=== PATIENT | female | born 1975 | race Caucasian/White ===

== ENCOUNTER 2020-07-28 15:29 | Emergency (ER) | payer OTHER ==
[~2020-07-28 15:29] MED LIST: AUGMENTIN 875-1 EACH PO; FLOXIN 0.3% OTIC5 ML EARLF; IPRAT-ALBUT 0.5-3 ML INH; MEDROL4 MG PO; POLYTRIM EYE DR10 ML EYEBOTH; VENTOLIN HFA 66.7 GM INH
[2020-07-28 16:23] LABS: HEMOGLOBIN 13.7 gm/dl (12.3-15.3); RED BLOOD COUNT 5.02 M/UL (4.00-5.10); WHITE BLOOD COUNT 7.8 K/UL (4.5-11.0)
[2020-07-28 16:38] LABS: BUN/CREATININE RATIO 14 (0-10)
[2020-07-28 17:18] LABS: ADENOVIRUS F 40/41 Not Detected (Negative); ASTROVIRUS Not Detected (Negative); CAMPYLOBACTER Not Detected (Negative); CLOSTRIDIUM DIFFICILE TOX A/B Not Detected (Negative); CRYPTOSPORIDIUM Not Detected (Negative); E.COLI 0157 Not Detected (Negative); ENTAMOEBA HISTOLYTICA Not Detected (Negative); ENTEROAGGREGATIVE E.COLI (EAEC Not Detected (Negative); ENTEROPATHOGENIC E.COLI (EPEC) Not Detected (Negative); ENTEROTOXIGENIC E.COLI (ETEC) Not Detected (Negative); GIARDIA LAMBLIA Not Detected (Negative); NOROVIRUS GI/GII Not Detected (Negative); PLESIOMONAS SHIGELLOIDES Not Detected (Negative); ROTOVIRUS A Not Detected (Negative); SALMONELLA Not Detected (Negative); SAPOVIRUS Not Detected (Negative); SHIG/ENTEROINVAS.ECOLI (EIEC) Not Detected (Negative); SHIGA-LIK TOX.PRO.E.COLI (STEC Not Detected (Negative); VIBRIO Not Detected (Negative); VIBRIO CHOLERAE Not Detected (Negative); YERSINIA ENTEROCOLITICA Not Detected (Negative)
== END 2020-07-28 18:30 | disposition left against medical advice (07) ==
LOC: ER1 15:29
PROVIDERS: Family Medicine
DX: R11.2 Nausea with vomiting, unspecified (principal); R19.7 Diarrhea, unspecified; F17.200 Nicotine dependence, unspecified, uncomplicated; Z20.822 Contact with and (suspected) exposure to COVID-19
CPT/HCPCS: 0240U; 71045; 80053; 83690; 85025; 87507; 96374; 99284; J2405; J7120

== ENCOUNTER 2021-04-15 06:19 | Emergency (ER) | payer OTHER ==
[2021-04-15 07:25] LABS: RED BLOOD COUNT 3.84 M/UL (4.00-5.10); WHITE BLOOD COUNT 11.4 K/UL (4.5-11.0)
[2021-04-15 07:42] LABS: BUN/CREATININE RATIO 15 (0-10)
== END 2021-04-15 10:14 | disposition home or self-care (01) ==
LOC: ER1 06:19
PROVIDERS: Emergency Medicine
DX: C34.90 Malignant neoplasm of unspecified part of unspecified bronchus or lung (principal); C79.51 Secondary malignant neoplasm of bone; Z20.822 Contact with and (suspected) exposure to COVID-19; Z79.01 Long term (current) use of anticoagulants; J96.11 Chronic respiratory failure with hypoxia; M54.9 Dorsalgia, unspecified
CPT/HCPCS: 0240U; 71045; 80048; 82550; 82553; 83605; 83874; 83880; 84484; 85025; 87040; 93005; 99285; J0696

== ENCOUNTER 2021-04-20 12:39 | Emergency (ER) | payer OTHER ==
[~2021-04-20] VITALS: Ht 165.1 cm; Wt 113.4 kg
[2021-04-20] MEDS ORDERED: PHENERGAN 12.12.5 M1 PO (13:34)
[2021-04-20] MEDS ORDERED: CEPHALEXIN500 MG PO (13:34)
[2021-04-20 13:37] LABS: HEMOGLOBIN 11.7 gm/dl (12.3-15.3); RED BLOOD COUNT 3.7 M/UL (4.00-5.10); WHITE BLOOD COUNT 21.3 K/UL (4.5-11.0)
[2021-04-20 14:01] LABS: BUN/CREATININE RATIO 20 (0-10)
[2021-04-21 05:22] LABS: HEMOGLOBIN 10.3 gm/dl (12.3-15.3); WHITE BLOOD COUNT 16.9 K/UL (4.5-11.0)
[2021-04-21 05:25] LABS: RED BLOOD COUNT 3.29 M/UL (4.00-5.10)
[2021-04-21 05:44] LABS: BUN/CREATININE RATIO 27 (0-10)
== END 2021-04-21 17:50 | disposition home or self-care (01) ==
LOC: ER1 12:39
PROVIDERS: Family Medicine; Internal Medicine
DX: J96.20 Acute and chronic respiratory failure, unspecified whether with hypoxia or hypercapnia (principal); G89.29 Other chronic pain; E87.1 Hypo-osmolality and hyponatremia; I49.5 Sick sinus syndrome; R00.0 Tachycardia, unspecified; E03.9 Hypothyroidism, unspecified; R91.8 Other nonspecific abnormal finding of lung field; Z20.822 Contact with and (suspected) exposure to COVID-19; Z51.5 Encounter for palliative care; C79.31 Secondary malignant neoplasm of brain; C79.51 Secondary malignant neoplasm of bone; Z91.14 Patient's other noncompliance with medication regimen; F17.200 Nicotine dependence, unspecified, uncomplicated; Z86.59 Personal history of other mental and behavioral disorders
CPT/HCPCS: 0240U; 36600; 71045; 80053; 80307; 81001; 82009; 82550; 82553; 82803; 83605; 83690; 83735; 83874; 83880; 84439; 84443; 84484; 85025; 85027; 85610; 87040; 87086; 93005; 94640; 94664; 94760; 96372; 96374; 96375; 96376; 99285; J1170; J1650; J2185; J2920; J2930; J3370; J7030; J7070; Q9967